=== PATIENT | male | born 1960 | race Caucasian/White ===

== ENCOUNTER 2016-06-14 13:53 | Emergency (ER) | payer BC ==
[~2016-06-14] VITALS: Ht 177.8 cm; Wt 82.2 kg
[~2016-06-14 13:53] MED LIST: DAILY MULTIPLE1 EACH PO; SAW PALMETTO160 MG PO; ZINC30 MG PO
[2016-06-14 14:03] VITALS: BP 142/91
[2016-06-14 14:45] LABS: HEMATOCRIT 38.8 % (38.0-50.0); MCHC 34.8 G/DL (30.0-36.0); MCV 94.9 FL (86-99); PLATELET COUNT 189 K/uL (156-360); RBC DIS.WIDTH-SD 36.8 % (39-53); RED BLOOD COUNT 4.09 M/uL (4.00-5.50); WHITE BLOOD COUNT 6.5 K/uL (4.1-10.2)
[2016-06-14 14:55] LABS: CHLORIDE 105 mEq/L (99-109); POTASSIUM 5.2 mEq/L (3.7-5.4); SODIUM 137 mEq/L (136-147)
[2016-06-14 14:56] LABS: GLUCOSE 116 mg/dL (70-99)
[2016-06-14 14:58] LABS: ANION GAP 7 MEQ/L (2-14)
[2016-06-14 15:00] LABS: GFR ESTIMATE (CALCULATED) > 59 mL/min/
[2016-06-14 15:01] LABS: UREA NITROGEN (BUN) 17 mg/dL (9-23)
[2016-06-14 15:06] LABS: TROP-I INTERPRETATION NEGATIVE; TROPONIN-I 0.02 ng/mL (0.0-0.30)
== END 2016-06-14 17:18 | disposition home or self-care (01) ==
LOC: EME 13:53
DX: R07.9 Chest pain, unspecified (principal); R73.9 Hyperglycemia, unspecified; R42 Dizziness and giddiness; H93.11 Tinnitus, right ear; Z87.891 Personal history of nicotine dependence
CPT/HCPCS: 71020; 80048; 84484; 85027; 93005; 99281; 99285